=== PATIENT | male | born 1975 | race Caucasian/White ===

== ENCOUNTER 2019-03-31 11:13 | Emergency (ER) | payer MEDICARE ==
[~2019-03-31] VITALS: Ht 185.4 cm; Wt 58.8 kg
--- NOTE | 2019-03-31 11:48 | NUR ---
Assumed care of patient. C/O bilat hand, bilat foot, and neck pain. Patient states, "I think I broke my neck". Denies trauma. Full ROM of wrists, finger, ankles and neck with no signs of increased pain. Placed on NIBP and pulse ox. Will continue to monitor.
[2019-03-31] MEDS ORDERED: KETOROLAC 30 MG/1 ML ONE (11:59)
[2019-03-31] MEDS ORDERED: KETOROLAC 30 MG/1 ML IM ONE (12:00)
[2019-03-31 12:18] LABS: BASOPHILS # (AUTO) 0.02 x10^3/uL (0-0.1); BASOPHILS % (AUTO) 0 % (0-1); EOSINOPHILS # (AUTO) 0.09 x10^3/uL (0-0.4); EOSINOPHILS % (AUTO) 1 % (1-7); LYMPHOCYTES % (AUTO) 13 % (22-44); MD NO; MEAN CORPUSCULAR HEMOGLOBIN 31.8 pg (27.5-34.5); MEAN CORPUSCULAR VOLUME 96.5 fL (81-97); MEAN PLATELET VOLUME 7.9 fL (7.4-10.4); MONOCYTES # (AUTO) 0.65 x10^3/uL (0.2-0.8); MONOCYTES % (AUTO) 7 % (2-9); NEUTROPHILS # (AUTO) 8.07 x10^3/uL (1.8-6.8); NEUTROPHILS % (AUTO) 80 % (42-75); PLATELET COUNT 365 x10^3/uL (130-400); RED BLOOD COUNT 4.47 x10^6/uL (4.38-5.82); RED CELL DISTRIBUTION WIDTH 14.2 % (9.4-14.8)
[2019-03-31 12:30] LABS: ANION GAP 7 mmol/L (5-15); CALCIUM 8.9 mg/dL (8.5-10.1); CHLORIDE 104 mmol/L (98-107); CREATININE 0.68 mg/dL (0.7-1.3)
[2019-03-31 13:06] VITALS: BP 106/64
== END 2019-03-31 13:14 ==
LOC: ED 13:08
DX: M79.18 Myalgia, other site (principal); M25.50 Pain in unspecified joint; F17.200 Nicotine dependence, unspecified, uncomplicated; F12.10 Cannabis abuse, uncomplicated; F15.90 Other stimulant use, unspecified, uncomplicated; Z59.0 Homelessness; Z72.89 Other problems related to lifestyle
CPT/HCPCS: 36415; 71045; 80048; 85025; 96372; 99284; J1885